=== PATIENT | female | born 1980 | race Caucasian/White ===

== ENCOUNTER 2017-10-15 20:23 | Emergency (ER) | payer BC, MEDICAID ==
[2017-10-15] MEDS ORDERED: Ketorolac INJ* 30 MG/ML 1 ML VIAL IV PUSH ONE (22:15)
[2017-10-16 00:21] VITALS: BP 112/70
--- NOTE | 2017-10-16 00:23 | ED ---
Louisa So Julia, scribed for Kathy Castañeda MD on 10/15/17 at 2217 . HPI Chest Pain - HPI Summary HPI Summary: This patient is a 37 year old F presenting to [facility] with a chief complaint of shooting upper back pain that radiates to her chest and RUE since 18:30 that has improved slightly. Patient reports indigestion and lightheadedness. The patient rates the pain 3/10 in severity. Symptoms aggravated by bending. Symptoms alleviated by nothing. Patient reports physical activity at work today. - History of Current Complaint Chief Complaint: EDChestPainROMI Time Seen by Provider: 10/15/17 21:53 Hx Obtained From: Patient Onset/Duration: Started Hours Ago Time of Onset: 18:30 Timing: Constant Initial Severity: Moderate Current Severity: Mild Pain Intensity: 3 Pain Scale Used: 0-10 Numeric Chest Pain Location: Mid Sternal Chest Pain Radiates: Yes Chest Pain Radiates To:: Back, Arm - R Character: Other: - "shooting" Aggravating Factor(s): Movement - bending over Alleviating Factor(s): Nothing Associated Signs and Symptoms: Positive: Chest Pain, Other: - indigestion and lightheadedness - Allergy/Home Medications Allergies/Adverse Reactions: Allergies Allergy/AdvReac Type Severity Reaction Status Date / Time No Known Allergies Allergy Verified 10/15/17 20:35 PMH/Surg Hx/FS Hx/Imm Hx Opthamlomology History: Denies: Hx Legally Blind EENT History: Denies: Hx Deafness Infectious Disease History: No Infectious Disease History: Denies: Traveled Outside the [place] in Last 30 Days - Family History Known Family History: Positive: Unknown - Patient is unaware of family medical history. - Social History Occupation: Employed Full-time - take out waiter/waitress Review of Systems Positive: Other - lightheaded Positive: Chest Pain Positive: Other - indigestion Musculoskeletal: Other - back and R arm pain All Other Systems Reviewed And Are Negative: Yes Physical Exam Triage Information Reviewed: Yes Vital Signs On Initial Exam: Initial Vitals Temp Pulse Resp BP Pulse Ox 98.4 F 74 20 117/87 100 10/15/17 20:32 10/15/17 20:32 10/15/17 20:32 10/15/17 20:32 10/15/17 20:32 Vital Signs Reviewed: Yes Skin: Positive: Skin Color Reflects Adequate Perfusion Head/Face: Positive: Normal Head/Face Inspection Eyes: Positive: Normal ENT: Positive: Normal ENT inspection Respiratory/Lung Sounds: Positive: Clear to Auscultation, Breath Sounds Present Cardiovascular: Positive: Normal Musculoskeletal: Positive: Other - R chest and R upper back tenderness Diagnostics - Vital Signs Vital Signs Temp Pulse Resp BP Pulse Ox 10/15/17 20:32 98.4 F 74 20 117/87 100 - Laboratory Lab Statement: Any lab studies that have been ordered have been reviewed, and results considered in the medical decision making process. - Radiology CXR Radiology Interpretation Completed By: ED Physician - No acute pathology. - EKG 20:39 Cardiac Rate: NL - at 70 BPM EKG Rhythm: Sinus Rhythm EKG Interpretation: Normal axis. Normal interval. No ischemic changes. Chest Pain Course/Dx - Course Course Of Treatment: Patient presents with shooting upper back pain that radiates to her chest and RUE since 18:30 that has improved slightly. Patient reports indigestion and lightheadedness. EKG reveals no acute concern. CXR reveals no acute concern. Lab results are unremarkable. Patient was given Toradol for symptoms. Patient is discharged with dx of chest wall pain. - Diagnoses Provider Diagnoses: Chest wall pain Discharge - Discharge Plan Condition: Stable Disposition: HOME Patient Education Materials: Chest Pain (ED) Referrals: No Primary Care Phys,NOPCP [Primary Care Provider] - Additional Instructions: RETURN TO THE EMERGENCY DEPARTMENT FOR CHANGING OR WORSENING SYMPTOMS. The documentation as recorded by the Louisa carrizales Julia accurately reflects the service I personally performed and the decisions made by me, Kathy Castañeda MD.
--- NOTE | 2017-10-16 07:30 | RAD ---
INDICATION: Chest pain COMPARISON: None TECHNIQUE: An AP portable view obtained at 2225 hours is submitted. FINDINGS: Bones/Soft Tissues: There are no acute bony findings. Cardiomediastinal: The cardiomediastinal silhouette is normal. Lungs: There are no infiltrates. Pleura: There are no pleural effusions. Other: None IMPRESSION: NORMAL CHEST.
== END 2017-10-16 00:21 | disposition home or self-care (01) ==
LOC: ED 20:23
DX: R07.89 Other chest pain (principal)
CPT/HCPCS: 36415; 71045; 82550; 93005; 96374; 99283; J1885

== ENCOUNTER → 2019-04-03 08:53 | Day surgery (SDC) | payer BC ==
[~2019-04-03 08:53] MED LIST: Buffered Lidocaine 1% SYRIN* 1 ML/SYRINGE INTRADERM ONE; Dexamethasone IV* 4 MG/ML 1 ML (4 MG) IV SLOW PU ONE; Dexamethasone IV* 4 MG/ML 1 ML (4 MG) ONE; DiMENhydriNATE IV* 50 MG/ML VIAL IV PUSH PRN; Famotidine IV* 10 MG/ML 2 ML (20 mg) IV ONE; Famotidine IV* 10 MG/ML 2 ML (20 mg) ONE; HYDROcodone/ACETAMIN 5-325 MG* 1 TAB ONE; HYDROcodone/ACETAMIN 5-325 MG* 1 TAB PO PRN; Ketorolac INJ* 30 MG/ML 1 ML VIAL IV PRN; Ketorolac INJ* 30 MG/ML 1 ML VIAL ONE; Lactated Ringers 1000 ML Bag* 1,000 ML IV SCH; Lidocaine 2% PF * 5 ML VIAL ONE; Midazolam* 1 MG/ML 5 ML VIAL (5 MG) ONE; Naloxone* 0.4 MG/ML 1 ML VIAL IV PRN; Ondansetron INJ* 2 MG/ML VIAL ONE; Phenylephrine 40 MCG/ML SYRINGE ONE; Propofol* 10 MG/ML 20 ML BTL ONE; fentaNYL* 50 MCG/ML 2 ML VIAL (100 MCG VIAL) IV PRN; fentaNYL* 50 MCG/ML 2 ML VIAL (100 MCG VIAL) ONE; oxyCODONE/Acetamin 5/325 MG* TAB PO PRN
--- NOTE | 2019-04-03 14:05 | OP ---
OPERATIVE REPORT: DATE OF OPERATION: 04/03/19 DATE OF : 78 SURGEON: Jose Antonio MD. ANESTHESIOLOGIST: Dr. Rivero. ANESTHESIA: General endotracheal anesthesia. PRE-OP DIAGNOSES: Menometrorrhagia and anemia. POST-OP DIAGNOSES: Menometrorrhagia and anemia. OPERATIVE PROCEDURE: Dilation hysteroscopy, MyoSure polypectomy, and curettage. ESTIMATED BLOOD LOSS: Minimal, less than 20 cc. SPECIMENS: Endometrial polyp and endometrial curettings. FLUID DEFICIT: 230 cc on the MyoSure. FINDINGS: Midline uterus. Uterus sounds to 10. There was fluffy endometrium throughout, small poly ps. Both tubal ostia were visualized. There was a grade 2 uterine prolapse with anesthesia. There were no adnexal masses palpated. COMPLICATIONS: None. COUNTS: Sponge count correct x2. CONDITION: The patient was brought to the recovery room, awake and in stable condition. DESCRIPTION OF PROCEDURE: The patient was brought to the operating room. When general anesthesia wa s found to be adequate, the patient was prepped and draped in the usual sterile fashion in the dorsal lithotomy position. Time-out was performed. Exam under anesthesia was performed. Speculum was marla марина in the vagina. Anterior lip of the cervix was grasped with a single-tooth tenaculum and the cerv ix was gently and easily dilated with the graduated Hegar dilators. The MyoSure was introduced, with the above findings noted. The areas that appeared polypoid were removed with the MyoSure LITE. The MyoSure was removed. Curettage was performed. Large amount of endometrial curettings was obtained and this was sent with the specimen that appeared consistent with polyp as one specimen to Pathology. The single-tooth tenaculum was removed from the cervix. Excellent hemostasis was noted. All instr uments were removed from the vagina. The patient tolerated the procedure well and was brought to rec overy room, awake and in stable condition. [id number]/[facility] #: [id number]
[2019-04-03 14:49] VITALS: BP 98/69
== END | disposition home or self-care (01) ==
LOC: OR 08:53
PROVIDERS: ATTEND Obstetrics & Gynecology
DX: N92.1 Excessive and frequent menstruation with irregular cycle (principal); N84.0 Polyp of corpus uteri; D50.0 Iron deficiency anemia secondary to blood loss (chronic); F17.210 Nicotine dependence, cigarettes, uncomplicated
CPT/HCPCS: 36415; 81025; 88305; J1100; J1885; J2250; J2405; J2704; J3010

== ENCOUNTER 2019-08-12 05:32 | Observation (INO) | payer BC ==
[~2019-08-12 05:32] MED LIST changes: -Dexamethasone IV* 4 MG/ML 1 ML (4 MG) IV SLOW PU ONE; -Dexamethasone IV* 4 MG/ML 1 ML (4 MG) ONE; -DiMENhydriNATE IV* 50 MG/ML VIAL IV PUSH PRN; -Famotidine IV* 10 MG/ML 2 ML (20 mg) IV ONE; -Famotidine IV* 10 MG/ML 2 ML (20 mg) ONE; -HYDROcodone/ACETAMIN 5-325 MG* 1 TAB ONE; -HYDROcodone/ACETAMIN 5-325 MG* 1 TAB PO PRN; -Ketorolac INJ* 30 MG/ML 1 ML VIAL IV PRN; -Ketorolac INJ* 30 MG/ML 1 ML VIAL ONE; -Lactated Ringers 1000 ML Bag* 1,000 ML IV SCH; -Lidocaine 2% PF * 5 ML VIAL ONE; -Midazolam* 1 MG/ML 5 ML VIAL (5 MG) ONE; -Naloxone* 0.4 MG/ML 1 ML VIAL IV PRN; -Ondansetron INJ* 2 MG/ML VIAL ONE; -Phenylephrine 40 MCG/ML SYRINGE ONE; -Propofol* 10 MG/ML 20 ML BTL ONE; -fentaNYL* 50 MCG/ML 2 ML VIAL (100 MCG VIAL) IV PRN; -fentaNYL* 50 MCG/ML 2 ML VIAL (100 MCG VIAL) ONE; -oxyCODONE/Acetamin 5/325 MG* TAB PO PRN
[2019-08-12] MEDS ORDERED: Lactated Ringers 1000 ML Bag* 1,000 ML IV SCH ×2 (06:00→11:00)
[2019-08-12] MEDS ORDERED: ceFOXitin 2 GM IVPREMIX* 2 GM/50 ML BAG ONE (06:12)
[2019-08-12] MEDS ORDERED: ceFOXitin 2 GM IVPREMIX* 2 GM/50 ML BAG IVPB ONE (07:00)
[2019-08-12] MEDS ORDERED: Bupivacaine 0.5% W/EPI SDV* 10 ML VIAL INJ ONE (07:11)
[2019-08-12] MEDS ORDERED: Propofol* 10 MG/ML 20 ML BTL ONE (07:23)
[2019-08-12] MEDS ORDERED: fentaNYL* 50 MCG/ML 2 ML VIAL (100 MCG VIAL) ONE ×2 (07:23→09:02)
[2019-08-12] MEDS ORDERED: Rocuronium* 10 MG/ML VIAL ONE ×2 (07:23→08:27)
[2019-08-12] MEDS ORDERED: Midazolam* 1 MG/ML 5 ML VIAL (5 MG) ONE (07:24)
[2019-08-12] MEDS ORDERED: Dexamethasone IV* 4 MG/ML 1 ML (4 MG) ONE (07:36)
[2019-08-12] MEDS ORDERED: Lidocaine 2% PF * 5 ML VIAL ONE (07:37)
[2019-08-12] MEDS ORDERED: Phenylephrine 40 MCG/ML SYRINGE ONE (07:52)
[2019-08-12] MEDS ORDERED: DiMENhydriNATE IV* 50 MG/ML VIAL IV PUSH PRN (08:46)
[2019-08-12] MEDS ORDERED: fentaNYL* 50 MCG/ML 2 ML VIAL (100 MCG VIAL) IV PRN (08:46)
[2019-08-12] MEDS ORDERED: Acetaminophen TAB* 325 MG PO PRN (08:46)
[2019-08-12] MEDS ORDERED: HYDROcodone/ACETAMIN 5-325 MG* 1 TAB PO PRN (08:46)
[2019-08-12] MEDS ORDERED: Ondansetron INJ* 2 MG/ML VIAL IV PRN (08:46)
[2019-08-12] MEDS ORDERED: Naloxone* 0.4 MG/ML 1 ML VIAL IV PRN (08:46)
[2019-08-12] MEDS ORDERED: Ketorolac INJ* 30 MG/ML 1 ML VIAL ONE (09:09)
[2019-08-12] MEDS ORDERED: Ondansetron INJ* 2 MG/ML VIAL ONE (09:09)
[2019-08-12] MEDS ORDERED: oxyCODONE/Acetamin 5/325 MG* TAB PO PRN (10:27)
[2019-08-12] MEDS ORDERED: HYDROmorphone INJ1* 1 MG/ML SYRINGE ONE ×2 (11:05→14:28)
[2019-08-12] MEDS: HYDROmorphone INJ1* 1 MG/ML SYRINGE IV PRN ×6 (11:06→22:13)
[2019-08-12] MEDS ORDERED: Acetaminophen TAB* 325 MG ONE (14:28)
[2019-08-12 17:39] LABS: Urine Appearance Clear; Urine Bilirubin Negative (Negative); Urine Blood Negative (Negative); Urine Color Straw; Urine Glucose Negative (Negative); Urine Ketones Negative (Negative); Urine Nitrite Negative (Negative); Urine Protein Negative (Negative); Urine Specific Gravity 1.003 (1.010-1.030); Urine Urobilinogen Negative (Negative)
[2019-08-12] MEDS: Ibuprofen TAB* 600 MG PO PRN (19:18)
[2019-08-12] MEDS: Ondansetron TAB* 4 MG PO PRN (22:04)
[2019-08-12] MEDS: Acetaminophen TAB* 325 MG PO PRN (22:04)
[2019-08-13] MEDS: Acetaminophen TAB* 325 MG PO PRN ×3 (04:16→17:45)
[2019-08-13] MEDS: HYDROmorphone INJ1* 1 MG/ML SYRINGE IV PRN (06:23)
[2019-08-13] MEDS ORDERED: Simethicone TAB* 80 MG TAB.CHEW PO PRN (08:55)
--- NOTE | 2019-08-13 09:10 | SURGPN ---
Subjective - Introduction -: Patient is a 39 y/o with Abnormal uterine bleeding post surgical treatment. Admitted on: 08/12/19] Patient's surgical date: 08/12/19 Procedure completed: Laparoscopic supracervical hysterectomy and bilateral salpingectomy. S.Post op day 1. patientis in bed with walker next to her bed, denies chest pain, shortness of breath, nausea and vomiting. She admits to abdominal discomfoit due to abdominal "gas" bloating she ebenezer that overnight she used the walker to reach bathroom due to being sleepy and lightheaded. She declined percocet and states that Motrin and tylenol is sufficient for pain, she , however, has been treated with dilaudid since admission. The patient is crying stating is due to lack of sleep which she feels is due to Nicotine withdrawal as she admits to smoking >1/2 pk day. Vital Signs Temp Pulse Resp BP Pulse Ox 98.0 F 76 16 93/58 97 08/13/19 08:39 08/13/19 08:39 08/13/19 08:39 08/13/19 08:39 08/13/19 08:39 Intake & Output 08/11/19 08/12/19 08/13/19 08/14/19 06:59 06:59 06:59 06:59 Intake Total 3115 Output Total 3760 400 Balance -645 -400 Weight 163 lb Intake: IV Fluids 2445 LR 2445 Oral 670 Output: Urine 0 Wisdom 2850 400 Residual 910 Wisdom 16 Fr 910 Other: # Bowel Movements 0 ADLs: Meal Record Start: 08/12/19 12: 23 Freq: Status: Active Protocol: Created 08/12/19 12:23 System (Rec: 08/12/19 12:23 System [id number]) Intake and Output Start: 08/12/19 12: 23 Freq: DAILY@0600,1400,2200 Status: Active Protocol: Created 08/12/19 12:23 System (Rec: 08/12/19 12:23 System [id number]) Document 08/12/19 14:32 [id number] (Rec: 08/12/19 14:32 [id number] [facility]-M18) Document 08/12/19 22:25 [id number] (Rec: 08/12/19 22:26 [id number] [facility]-M17) Document 08/13/19 05:16 [id number] (Rec: 08/13/19 05:17 [id number] [facility]-C08) Document 08/13/19 06:00 [id number] (Rec: 08/13/19 06:01 [id number] [facility]-4) Laboratory Last Values Urine Color Straw 08/12/19 17:15 Urine Appearance Clear 08/12/19 17:15 Urine pH 7.0 (5-9) 08/12/19 17:15 Ur Specific [place] 1.003 (1.010-1.030) L 08/12/19 17:15 Urine Protein Negative (Negative) 08/12/19 17:15 Urine Ketones Negative (Negative) 08/12/19 17:15 Urine Blood Negative (Negative) 08/12/19 17:15 Urine Nitrate Negative (Negative) 08/12/19 17:15 Urine Bilirubin Negative (Negative) 08/12/19 17:15 Urine Urobilinogen Negative (Negative) 08/12/19 17:15 Ur Leukocyte Esterase Negative (Negative) 08/12/19 17:15 Urine Glucose Negative (Negative) 08/12/19 17:15 PE Lungs CTA b/l, no CVA tenderness b/l CV RRR no abnormal heart sounds Abdomen is soft, distended with normal bowel sounds, normal post op tenderness. Incisions clean , dry and intact with no discharge noted. - Medications -: Active Medications Generic Name Dose Route Start Last Admin Trade Name Freq PRN Reason Stop Dose Admin Acetaminophen 650 mg 08/12/19 14:30 08/13/19 04:16 Tylenol Tab* PO 650 mg Q6H PRN Administration PAIN MILD Bisacodyl 10 mg 08/13/19 08:53 Dulcolax Supp* HI 08/13/19 08:54 ONCE ONE Docusate Sodium 100 mg 08/13/19 08:55 Colace Cap* PO BID PRN CONSTIPATION Lactated Ringer's 1,000 mls @ 125 mls/hr 08/12/19 11:00 08/12/19 12:30 Lactated Ringers 1000 Ml Bag* IV 125 mls/hr PER RATE LEI Administration Ibuprofen 600 mg 08/12/19 10:27 08/12/19 19:18 Motrin Tab* PO 600 mg Q6H PRN Administration PAIN - MILD Nicotine 1 patch 08/13/19 09:00 Nicotine Patch 21 Mg/24 Hr* TRANSDERM DAILY LEI Ondansetron HCl 4 mg 08/12/19 20:28 08/12/19 22:04 Zofran Tab* PO 4 mg Q4H PRN Administration NAUSEA Pharmacy Profile Note 1 note 08/14/19 06:00 Nicotine Patch Removal Note* FOLLOW UP 0600 [facility] Simethicone 80 mg 08/13/19 08:55 Mylicon Tab* PO Q6H PRN NAUSEA - Comments Comments: Plan. OOB and ambulate Discontinue Dilaudid Heplock IV added meds, Nicotine patch, colace, dulcolax supp, mylicon. Patient has Anxiety issues is not on medication treatment for this, we discussed the plan to get her OOB and moving, along with medication changes. Overall she is stable,however, her anxiety may preclude her from achieving her goals for recovery today. Will continue top monitor and reasses her progress this afternoon Objective - Intake and Output -: Intake & Output 08/11/19 08/12/19 08/13/19 08/14/19 06:59 06:59 06:59 06:59 Intake Total 3115 Output Total 3760 400 Balance -645 -400 Weight 163 lb Intake: IV Fluids 2445 LR 2445 Oral 670 Output: Urine 0 Wisdom 2850 400 Residual 910 Wisdom 16 Fr 910 Other: # Bowel Movements 0 ADLs: Meal Record Start: 08/12/19 12: 23 Freq: Status: Active Protocol: Created 08/12/19 12:23 System (Rec: 08/12/19 12:23 System [id number]) Intake and Output Start: 08/12/19 12: 23 Freq: DAILY@0600,1400,2200 Status: Active Protocol: Created 08/12/19 12:23 System (Rec: 08/12/19 12:23 System [id number]) Document 08/12/19 14:32 [id number] (Rec: 08/12/19 14:32 [id number] S[facility]-M18) Document 08/12/19 22:25 [id number] (Rec: 08/12/19 22:26 [id number] SSU-M17) Document 08/13/19 05:16 [id number] (Rec: 08/13/19 05:17 [id number] S[facility]-C08) Document 08/13/19 06:00 [id number] (Rec: 08/13/19 06:01 [id number] [place] [address])
[2019-08-13 09:18] LABS: ABS Lymphocytes 1.7 10^3/ul (1.0-4.8); ABS Monocytes 0.6 10^3/ul (0-0.8); ABS Neutrophils 5.7 10^3/ul (1.5-7.7); Eosinophil % 0.2 %; Hematocrit 31 % (35-47); Hemoglobin 10.7 g/dL (12.0-16.0); Lymphocyte % 21.3 %; Mean Corpuscular HGB Conc 34 g/dL (31-36); Mean Corpuscular Hemoglobin 33 pg (27-31); Mean Corpuscular Volume 96 fL (80-97); Mean Platelet Volume 7.9 fL (7.4-10.4); Platelet Count 248 10^3/uL (150-450); Red Blood Count 3.23 10^6 /uL (3.70-4.87); Red Cell Distribution Width 14 % (10-15); White Blood Count 8.1 10^3/uL (3.5-10.8)
[2019-08-13] MEDS: Nicotine PATCH 21 MG/24 HR* PATCH TRANSDERM SCH (09:41)
[2019-08-13] MEDS: Docusate CAP* 100 MG PO PRN (09:42)
[2019-08-13] MEDS: Ibuprofen TAB* 600 MG PO PRN (10:42)
[2019-08-13] MEDS ORDERED: Ketorolac INJ* 30 MG/ML 1 ML VIAL IV PRN (17:34)
[2019-08-14] MEDS ORDERED: HYDROcodone/ACETAMIN 5-325 MG* 1 TAB ONE (08:50)
[2019-08-14] MEDS: Ondansetron TAB* 4 MG PO PRN ×2 (08:55→13:08)
[2019-08-14] MEDS: Nicotine PATCH 21 MG/24 HR* PATCH TRANSDERM SCH (08:56)
[2019-08-14 11:38] VITALS: BP 101/67
--- NOTE | 2019-08-14 12:39 | SURGPN ---
Subjective - Introduction -: Admitted on: [08/12/19 Patient's surgical date: 08/12/19 Procedure completed: laparoscopic supracervical hysterectomy S. Patient feels much better pain controlled with current meds, tolerating reg diet, passing flatus, denies chest pain/ shortness of breath/nausea or vomiting. Undergoing bladder training post urinary retention. O. Vital Signs Temp Pulse Resp BP Pulse Ox 97.7 F 85 16 101/67 99 08/14/19 11:33 08/14/19 11:33 08/14/19 11:33 08/14/19 11:33 08/14/19 11:33 Intake & Output 08/12/19 08/13/19 08/14/19 08/15/19 06:59 06:59 06:59 06:59 Intake Total 3115 1850 Output Total 3760 4525 1100 Balance -645 -2675 -1100 Weight 163 lb Intake: IV Fluids 2445 LR 2445 Oral 670 1850 Output: Urine 0 0 Ruth 2850 4025 1100 Residual 910 500 Ruth 16 Fr 910 500 Other: # Bowel Movements 0 1 Estimated Stool Amount Small Physical Lungs CTA b/l CV RRR Abdomen soft, mild distension with normal active bowel sounds. Incisions clean/dry/intact, no discharge. - Medications -: Active Medications Generic Name Dose Route Start Last Admin Trade Name Freq PRN Reason Stop Dose Admin Acetaminophen 650 mg 08/12/19 14:30 08/13/19 17:45 Tylenol Tab* PO 650 mg Q6H PRN Administration PAIN MILD Hydrocodone Bitart/Acetaminophen 1 tab 08/14/19 08:58 [place] 5-325 Tab* PO Q4H PRN PAIN - SEVERE Docusate Sodium 100 mg 08/13/19 08:55 08/13/19 09:42 Colace Cap* PO 100 mg BID PRN Administration CONSTIPATION Lactated Ringer's 1,000 mls @ 125 mls/hr 08/12/19 11:00 08/12/19 12:30 Lactated Ringers 1000 Ml Bag* IV 125 mls/hr PER RATE LEI Administration Ketorolac Tromethamine 30 mg 08/13/19 17:34 08/13/19 17:45 Toradol Inj* IV 30 mg Q6H PRN Administration PAIN - MODERATE Nicotine 1 patch 08/13/19 09:00 08/14/19 08:56 Nicotine Patch 21 Mg/24 Hr* TRANSDERM 1 patch DAILY LEI Administration Ondansetron HCl 4 mg 08/12/19 20:28 08/14/19 08:55 Zofran Tab* PO 4 mg Q4H PRN Administration NAUSEA Pharmacy Profile Note 1 note 08/14/19 21:00 Nicotine Patch Removal Note* PATCH OFF 2100 LEI Simethicone 80 mg 08/13/19 08:55 08/13/19 17:45 Mylicon Tab* PO 80 mg Q6H PRN Administration NAUSEA - Comments Comments: I/P POD # 2 post op course complicated by urinary retention requiring catheterizatin and bladder training otherwise stable. Plan. D/C ruth at 1 pm trial at spontaneous voiding. Objective - Intake and Output -: Intake & Output 08/12/19 08/13/19 08/14/19 08/15/19 06:59 06:59 06:59 06:59 Intake Total 3115 1850 Output Total 3760 4525 1100 Balance -645 -9497 -1100 Weight 163 lb Intake: IV Fluids 2445 LR 2445 Oral 670 1850 Output: Urine 0 0 Ruth 2850 4025 1100 Residual 910 500 Ruth 16 Fr 910 500 Other: # Bowel Movements 0 1 Estimated Stool Amount Small ADLs: Meal Record Start: 08/12/19 12: 23 Freq: Status: Active Protocol: Created 08/12/19 12:23 System (Rec: 08/12/19 12:23 System [facility]) Intake and Output Start: 08/12/19 12: 23 Freq: DAILY@0600,1400,2200 Status: Active Protocol: Created 08/12/19 12:23 System (Rec: 08/12/19 12:23 System [facility]) Document 08/12/19 14:32 [id number] (Rec: 08/12/19 14:32 [id number] [facility] Document 08/12/19 22:25 [id number] (Rec: 08/12/19 22:26 [id number] [facility] Document 08/13/19 05:16 [id number] (Rec: 08/13/19 05:17 [id number] [facility]-C08) Document 08/13/19 06:00 [id number] (Rec: 08/13/19 06:01 [id number] TELE-M14) Document 08/13/19 13:46 [id number] (Rec: 08/13/19 13:47 [id number] [facility] Document 08/13/19 15:07 [id number] (Rec: 08/13/19 15:08 [id number] [facility]) Document 08/13/19 16:00 [id number] (Rec: 08/13/19 16:27 [id number] [facility]) Document 08/13/19 17:24 [id number] (Rec: 08/13/19 17:24 [id number] [facility]6) Document 08/13/19 22:41 [id number] (Rec: 08/13/19 22:53 [id number] [facility]) Document 08/14/19 06:10 [id number] (Rec: 08/14/19 06:16 [id number] [facility]2)
[2019-08-14] MEDS: HYDROcodone/ACETAMIN 5-325 MG* 1 TAB PO PRN ×2 (13:09→17:18)
[2019-08-14] MEDS: Docusate CAP* 100 MG PO PRN (13:18)
--- NOTE | 2019-08-14 18:10 | PN ---
Progress Note - Progress Note Date of Service: 08/14/19 SOAP: Subjective: [Patient is comfortable, ambulating, voiding spontaneously with no difficulty, tolerating reg diet and pain well controlled with PO meds. She desires discharge home tonite.] Objective: [ Vital Signs Temp Pulse Resp BP Pulse Ox 97.3 F 72 16 101/67 100 08/14/19 16:30 08/14/19 16:30 08/14/19 17:18 08/14/19 16:30 08/14/19 16:30 Lungs Cta b/l CV RRR Abdomen Soft, Normal bowel sounds, Appropriately tender. Incisions are C/D/I no discharge.] Assessment: [Patient stable for discharge.] Plan: [Discharge home, D/C instructions reviewed with patient.]
[2019-08-14] MEDS ORDERED: Nicotine Patch Removal NOTE PATCH OFF SCH (21:00)
--- NOTE | 2019-09-03 09:16 | DS ---
DISCHARGE SUMMARY: DATE OF ADMISSION: 08/12/19 DATE OF DISCHARGE: 08/14/19, postop day #2. HOSPITAL COURSE: The patient was admitted with abnormal uterine bleeding. She underwent a laparosco pic supracervical hysterectomy on the day of admission without any complications. Postoperatively, t he patient was then transferred to the surgical stay unit for observation. [facility] was complicated by urinary retention, for which she underwent bladder training and then on postop day #2, 08/14/19, the patient was ambulating and voiding without difficulty, tolerating regular diet, and was using p.o. meds. So, at this point, the patient met criteria for discharge and she was ther efore discharged home to follow up at my office in 1 week post procedure. Discharge instructions wer e reviewed with the patient as well as take home medications. Please refer to the patient's chart fo r complete details of the patient's laboratory findings and operative findings and pathology report, which at the date and the time of discharge was pending. [id number]/[facility] #: [id number]
--- NOTE | 2019-09-03 10:14 | OP ---
OPERATIVE REPORT: DATE OF OPERATION: 08/12/19 DATE OF : 78 SURGEON: Willard Holder MD. CARGO SUPERVISOR SURGEON: Jose Antonio MD. ANESTHESIA: General anesthetic with endotracheal intubation. PRE-OP DIAGNOSIS: Abnormal uterine bleeding. POST-OP DIAGNOSIS: Abnormal uterine bleeding. OPERATIVE PROCEDURE: Laparoscopic supracervical hysterectomy and bilateral salpingectomy. ESTIMATED BLOOD LOSS: 10 cc. SPECIMEN SENT TO PATHOLOGY: Right and left fallopian tubes and a morcellated uterus. FLUIDS: She received 2 L of IV crystalloid fluid. URINE OUTPUT: 600 cc of clear urine. FINDINGS: The patient was noted to have an enlarged globular uterus with no obvious lesion. Normal tubes and ovaries bilaterally with normal bowel and bladder. COMPLICATIONS: There were no complications. DESCRIPTION OF PROCEDURE: The patient was taken to the operating room where she was identified. She was placed on the operating table, where a general anesthetic with endotracheal intubation was obtai nataliia without difficulty. She was then placed in the dorsal lithotomy position, prepped and draped in normal sterile fashion. Attention was then brought on to the patient's peritoneum where the bladder w as catheterized with a Wisdom catheter and drained of clear urine. A speculum was inserted into the p atient's vagina. The cervix was identified. It was then grasped with a single-tooth tenaculum and t hrough the cervix, a [place] uterine manipulator was introduced. The balloon in the manipulator wa s insufflated with 3 cc of normal saline. The single-tooth tenaculum was removed as well as the spec ulum. Attention was then brought on to the patient's abdomen where an infraumbilical skin incision w as made with a knife and carried through to the underlying layer of fascia. The fascia was then gras ped with Seema clamps and brought up to the incision. The fascia was then incised midline with a kn renetta. Entry into the patient's abdomen and through the peritoneum was confirmed using a Nguyen clamp. The Seema clamps in the fascia were then replaced with 0 Polysorb sutures. The fascial incision on the umbilicus was then extended inferiorly and superiorly sharply to about a length of 4 cm. Through this incision, a GelPOINT single-site port was introduced. A trocar in the port was also placed. T he patient's abdomen was then insufflated with CO2 gas. Through the GelPort, a 30- degree scope was introduced. The patient was then placed in the Trendelenburg position and 2 other trocars in the rig ht and left upper quadrants of the patient's abdomen were introduced under direct visualization. We then proceeded to move the bowel away from the patient's pelvis and a survey of the patient's pelvic anatomy revealed findings as noted above. At this point, we then proceeded to do a bilateral salping ectomy using the LigaSure by grasping the wound and fallopian tubes bilaterally at its most distal po rtion, the fimbriated end. They were then resected and removed from the patient's abdomen and sent to Pathology. We identified the round ligaments and the uterus bilaterally. These were graspe d with LigaSure, coagulated and transected. The uteroovarian ligaments were grasped with LigaSure bi laterally. They were coagulated and transected as well as the proximal portion of the fallopian tube was grasped with LigaSure, coagulated and transected. A window in the anterior leaf of the broad lig ament was then made with the LigaSure. The anterior leaf of the broad ligament was then opened infer iorly using sharp and blunt dissection. The bladder flap was created. The bladder was then mobilize d away from the lower uterine segment using sharp and blunt dissection with the LigaSure device. We identified the uterine arteries bilaterally. They were grasped at the lateral aspect of the uterus w ith the LigaSure. They were coagulated. The uterine artery was then coagulated in succession toward s the lower uterine segment and the cervix. They were then transected bilaterally using LigaSure at the uterine cervical junction. The uterus was then noted to be pale from its diminished blood supply . We then introduced a SupraLoop towards the trocars in the patient's abdomen. The SupraLoop was th en wrapped around the uterus and its cervical uterine junction. It was charged at 110 Pure-Cut setti ng and the uterus had been decapitated from the cervix. The SupraLoop was then removed from the tiana ent's abdomen. Prior to decapitating the uterus with the SupraLoop, I had removed the uterine manipu lator. So at this point, we proceeded to remove the uterus away from the pelvis. At the site of the surgery, the pedicles were noted to be completely hemostatic as well as the cervix. We then placed the uterus in an Endobag. The bag was removed through the patient's umbilicus. The uterus was morce llated inside the bag. It was then removed and sent to Pathology. The bag was also removed. We the n reapplied the GelPOINT port. The patient's abdomen was then insufflated again with CO2 gas. We to ok a survey of the patient's operative site. The pedicles were noted to be completely hemostatic. A t this point, I proceeded to irrigate with normal saline. Irrigation fluid was suctioned. No bleedi ng was noted. The trocars in the right and left upper quadrants of the patient's abdomen were then r emoved under direct visualization and the single-site GelPOINT trocar was removed as well. The fasci a in the umbilicus was closed using 0 Polysorb suture in a running fashion and all the operative skin incisions were then closed with 4-0 Monocryl subcuticular stitches. The patient tolerated the proce dure well. Sponge, lap, and needle counts were correct x2. She was then transferred to the recovery room area in stable condition. [id number]/[facility] #: [id number]
--- NOTE | 2019-10-01 08:26 | DS ---
DISCHARGE SUMMARY: ADDENDUM: DISPOSITION ON DISCHARGE: She was stable and was discharged to home. [id number]/[facility] #: [id number] KASEY
== END 2019-08-14 19:10 | disposition home or self-care (01) ==
LOC: OR 05:32 → SSU 10:27
PROVIDERS: ADMIT Obstetrics & Gynecology; ATTEND Obstetrics & Gynecology
DX: N92.1 Excessive and frequent menstruation with irregular cycle (principal); D50.0 Iron deficiency anemia secondary to blood loss (chronic)
CPT/HCPCS: 36415; 81003; 85025; 88307; 96374; 96375; 96376; A9270-GY; G0378; J0694; J1100; J1170; J1885; J2250; J2405; J2704; J3010

== ENCOUNTER 2019-12-27 14:30 | Emergency (ER) | payer BC ==
--- OUTSIDE RECORDS SUMMARY | 2019-12-27 15:37 | XMS REPORT | Summary of Care ---
:1980 Author Organization [facility] Address [address] [place] [address] Care Team Providers Name Role Phone Brooke Pat Primary Care Provider Reason for Visit Reason Comments Check Up vertigo and dizziness started yesterday Encounter Details Date Type Department Care Team Description 12/24/2019 Office Visit [facility] Concha Pat (Primary Dx); Practice MD Brooke Nasal congestion [address] [place], [place] [id number] [place] [address] [phone] Allergies Active Allergy Reactions Severity Noted Date Comments Megestrol Respiratory Reaction 04/01/2018 Patient stated that she felt she was unable to breath. Resolved when medication stopped. documented as of this encounter (statuses as of 12/24/2019) Medications Medication Sig Dispensed Refills Start Date End Date Status B Complex Vitamins Take by mouth 0 Active (VITAMIN-B COMPLEX DAILY. PO) Iron 15 MG/1.5ML Take 6 mL by 1 Bottle 1 05/07/2018 Active Oral Suspension mouth THREE TIMES PER WEEK. fluticasone [place] 2 Sprays 1 Bottle 0 12/24/2019 Active (FLONASE) 50 in nose DAILY. MCG/ACT Nasal SuspensionIndicatio ns: Nasal congestion meclizine Take 1 Tab by 60 Tab 1 12/24/2019 Active (ANTIVERT) 25 MG mouth THREE Oral TIMES DAILY TabIndications: NEEDED for Dizziness dizziness/vert igo. hydrocortisone Place 1 Appl 30 g 3 05/13/2018 12/24/19 Discontinued (No (ANUSOL-HC,PROCTOSO per rectum 20 longer L-HC) 2.5 % Rectal THREE TIMES clinically Cream DAILY. indicated) Nitroglycerin 0.4 % Place 1 Appl 30 g 2 05/20/2018 12/24/19 Discontinued (No Rectal per rectum 20 longer OintmentIndications TWICE DAILY. clinically : Anal or rectal indicated) pain PROCEDURE 1 Each by 30 Each 3 05/21/2018 12/24/19 Discontinued (No (MEDICATION Topical route 20 longer COMMUNICATION THREE TIMES clinically ORDER)Indications: DAILY. indicated) Grade IV Diltiazem 4% hemorrhoids, Anal applied small or rectal pain amounts to perineum 3 times daily Milk Thistle 150 MG Take by 0 12/24/19 Discontinued (No Oral Cap mouth. 20 longer clinically indicated) mupirocin Apply to thumb 30 g 0 07/09/2018 12/24/19 Discontinued (No (BACTROBAN) 2 % 3 times a day 20 longer Apply externally for 1 week clinically Ointment indicated) documented as of this encounter (statuses as of 12/24/2019) Active Problems Problem Noted Date Grade IV hemorrhoids 05/21/2018 Anal or rectal pain 05/21/2018 Chest pain of uncertain etiology 03/10/2018 Weight gain 03/10/2018 Anemia 03/10/2018 Multiple atypical nevi 03/10/2018 Abnormal uterine bleeding 03/10/2018 documented as of this encounter (statuses as of 12/24/2019) Resolved Problems Problem Noted Date Resolved Date Menorrhagia with irregular cycle 03/10/2018 03/10/2018 documented as of this encounter (statuses as of 12/24/2019) Social History Tobacco Use Types Packs/Day Years Used Date Current Every Day Smoker Cigarettes 0.5 12 Smokeless Tobacco: Never Used Alcohol Use Drinks/Week oz/Week Comments Yes Sex Assigned at Date Recorded Not on file documented as of this encounter Last Filed Vital Signs Not on filedocumented in this encounter Progress Notes Brooke Pat MD - 12/24/2019 1:40 PM EDT PATIENT: Renée Ahn : 1980 DATE OF SERVICE: 12/24/2019 In our efforts to minimize the spread of COVID-19 in our community, amongst our patients, healthcarestaff and providers, we have implemented virtual visits with our patients. No vital signs, physical exam or in-office diagnostics were completed during this visit. These items may be accomplished during subsequent visits. Subjective SUBJECTIVE: Patient was Not able to start video on her devise during the session Renée Ahn is a 39-y.o. female who presents for evaluation of vertigo started acutely yesterday after turning in her bed/ turning her head to the R. Associated ear symptoms: none. Associated central nervous system symptoms: headaches. Recent infections: Nasal congestion, clearnasal discharge, postnasal drip, productive cough started about 2 weeks ago. She is a smoker Denies fever, SOB Past Medical History: Diagnosis Date ? Anemia ? Hemorrhoid Family History Problem Relation Age of Onset ? No Known Problems Mother ? No Known Problems Father ? Alcohol/Drug Sister ? GI Son UC ? Diabetes Maternal Grandmother ? Stroke Maternal Grandfather ? Cancer Maternal Aunt reproductive tract Current Outpatient Medications Medication Sig ? B Complex Vitamins (VITAMIN-B COMPLEX PO) Take by mouth DAILY. ? fluticasone (FLONASE) 50 MCG/ACT Nasal Suspension [place] 2 Sprays in nose DAILY. ? Iron 15 MG/1.5ML Oral Suspension Take 6 mL by mouth THREE TIMES PER WEEK. ? meclizine (ANTIVERT) 25 MG Oral Tab Take 1 Tab by mouth THREE TIMES DAILY NEEDED for dizziness/vertigo. No current facility-administered medications for this visit. Allergies Allergen Reactions ? Megestrol Respiratory Reaction Patient stated that she felt she was unable to breath. Resolved when medication stopped. Social History Socioeconomic History ? Marital status: Single Spouse name: Not on file ? Number of children: Not on file ? Years of education: Not on file ? Highest education level: Not on file Occupational History ? Not on file Social Needs ? Financial resource strain: Not on file ? Food insecurity Worry: Not on file Inability: Not on file ? Transportation needs Medical: Not on file Non-medical: Not on file Tobacco Use ? Smoking status: Current Every Day Smoker Packs/day: 0.50 Years: 12.00 Pack years: 6.00 Types: Cigarettes ? Smokeless tobacco: Never Used Substance and Sexual Activity ? Alcohol use: Yes ? Drug use: No ? Sexual activity: Yes Partners: Male Lifestyle ? Physical activity Days per week: Not on file Minutes per session: Not on file ? Stress: Not on file Relationships ? Social connections Talks on phone: Not on file Gets together: Not on file Attends jain service: Not on file Active member of club or organization: Not on file Attends meetings of clubs or organizations: Not on file Relationship status: Not on file ? Intimate partner violence Fear of current or ex partner: Not on file Emotionally abused: Not on file Physically abused: Not on file Forced sexual activity: Not on file Other Topics Concern ? Back Care Not Asked ? Bike Helmet Not Asked ? Blood Transfusions Not Asked ? Caffeine Concern Not Asked ? Exercise Not Asked ? Hobby Hazards Not Asked ? International Travel No ? Service Not Asked ? Occupational Exposure Not Asked ? Seat Belt Yes ? Self-Exams No ? Sleep Concern Not Asked ? Special Diet Not Asked ? Stress Concern Not Asked ? Weight Concern Not Asked Social History Narrative ? Not on file REVIEW OF SYSTEMS: All remaining review of systems was negative. Objective OBJECTIVE: There were no vitals taken for this visit. Patient counseled about peripheral vertigo Recent respiratory infection vs Allergy possibly contributes Advised to start Flonase nasal spray once a day every day and Meclizine as needed for vertigo. Advised - Meclizine can be sedating, can cause dry mouth and constipation. OK to try half a tablet if 25 mg is to strong for her. ICD-9-CM ICD-10-CM 1. Dizziness 780.4 R42 meclizine (ANTIVERT) 25 MG Oral Tab 2. Nasal congestion 478.19 R09.81 fluticasone (FLONASE) 50 MCG/ACT Nasal Suspension Patient advised to be evaluated at the office if the symptoms persist or worse Author: Brooke Pat MD 12/24/2019 14:37 documented in this encounter Plan of Treatment Health Maintenance Due Date Last Done Comments PNEUMOCOCCAL 0-64 YRS (1 of 1985 1 - PPSV23) DTaP/Tdap/Td Vaccines (1 - 1990 Tdap) DEPRESSION SCREENING 1991 HIV SCREENING 1994 LIPID DISORDER SCREENING 1997 PAP SMEAR 02/17/2000 MAMMOGRAM (SCREENING) 2019 DIABETES SCREENING 03/14/2019 03/14/2018, 02/21/2018, 10/17/2017, Additional history exists INFLUENZA VACCINE (Season 05/24/2020 Ended) HEPATITIS A IMMUNIZATION Aged Out No longer eligible SERIES based on patient's age to complete this topic HPV IMMUNIZATION SERIES Aged Out No longer eligible based on patient's age to complete this topic MENINGOCOCCAL VACCINE IMM Aged Out No longer eligible based on patient's age to complete this topic documented as of this encounter Results Not on filedocumented in this encounter Visit Diagnoses Diagnosis Dizziness Dizziness and giddiness Nasal congestion Other diseases of nasal cavity and sinuses documented in this encounter Insurance Payer Benefit Plan / Subscriber ID Effective Dates Phone Address Type Group [employer] M[employer] [id number] 2019-Present [employer]AN documented as of this encounter Advance Directives Type Date Recorded Patient Software Team Leader Explanation Advance Directives 05/22/2018 8:36 AM Health Care Proxy
[2019-12-27 15:59] VITALS: BP 126/84
[2019-12-27] MEDS ORDERED: Amoxicillin/Clavulanate TAB* 875 MG PO ONE (16:26)
[2019-12-27] MEDS ORDERED: Meclizine TAB* 12.5 MG PO ONE (16:29)
--- NOTE | 2019-12-27 16:33 | UC ---
Dizzy HPI HPI Summary: 39-year-old woman comes in with a chief complaint of dizziness. 4 days ago patient woke up rolled over on her side and started with a spinning dizziness. Dizziness is worse with movement of her head or if she is leaning left or leaning backward. She can make the dizziness go away if she lays on her left side or leans to the left. Denies any weakness or numbness or difficulty with vision or speech. After approximately a half a day after the vertigo symptoms started patient started developing a headache in the right temporal area and behind the right eye that developed gradually. Denies any eye or ear pain. No rash. Headache intensity is variable from a 2 out of 10 to a 6 out of 10. Patient has woke up in the morning with no vertigo symptoms but when she moves her head the vertigo returns. Generally, during the course of the day the vertigo improves. Patient reports that last evening she was able to take shower and had minimal symptoms. Today when she woke up in the vertigo started again she went to get reevaluated. She spoke with her primary care physician by telemedicine 2 days ago and they started her on Flonase and Dramamine. She reports she's had no improvement on those medications. Patient did have some shortness of breath and chest tightness roughly 2 weeks ago after working out. Patient reports she did not work out in months prior to working out. She reports that the chest tightness was worse when she pushes on her chest wall. No complaint of any shortness of breath or chest congestion or fevers at this time. - History Of Current Complaint Chief Complaint: Martinez Stated Complaint: DIZZINESS,NAUSEA Time Seen by Provider: 12/27/19 15:34 Pain Intensity: 0 - Allergies/Home Medications Allergies/Adverse Reactions: Allergies Allergy/AdvReac Type Severity Reaction Status Date / Time megestrol [From Megace] Allergy Shortness Verified 12/27/19 15:53 of Breath oxycodone [From Percocet] Allergy Nausea And Verified 12/27/19 15:53 Vomiting Home Medications: Home Medications Ferrous Sulfate DROPS* 3 drop PO QAM 03/27/19 [History Confirmed 12/27/19] Vitamin B Complex 1 drop PO QAM 03/27/19 [History Confirmed 12/27/19] Amoxicillin/Clavulanate TAB* [Augmentin TAB 875*] 875 mg PO BID #18 tab [Rx] DiMENhydriNATE TAB* [DraMAMine TAB*] 50 mg PO Q6H PRN 12/27/19 [History Confirmed 12/27/19] Fluticasone NASAL SPRAY 50MCG* [Flonase NASAL SPRAY 50MCG*] 2 spray BOTH NARES DAILY 12/27/19 [History Confirmed 12/27/19] Meclizine HCl [Motion Sickness Relief] 25 mg PO Q6HR PRN #20 tablet 12/27/19 [Rx ] PMH/Surg Hx/FS Hx/Imm Hx Previously Healthy: Yes - Surgical History Surgical History: Yes Surgery Procedure, Year, and Place: KIDNEY SURGERY 1982 URETHRAL RESECTION BILAT. D&C 03/11 [facility] [place]. X1 2003. hysterectomy 2019 - Family History Known Family History: Positive: Unknown - Patient is unaware of family medical history. - Social History Alcohol Use: Daily Alcohol Amount: 1-2 glasses WINE X 1 DAILY Substance Use Type: None Smoking Status (MU): Heavy Every Day Tobacco Smoker Amount Used/How Often: 1/2 PPK X 22YR Have You Smoked in the Last Year: Yes Review of Systems All Other Systems Reviewed And Are Negative: Yes Constitutional: Positive: Other - see hpi Skin: Positive: Negative Eyes: Positive: Negative ENT: Positive: Other - see hpi Respiratory: Positive: Other - see hpi Cardiovascular: Positive: Other - see hpi Gastrointestinal: Positive: Negative Motor: Positive: Negative Neurovascular: Positive: Negative Musculoskeletal: Positive: Negative Neurological/Mental Status: Positive: Headache, Other - see hpi Psychological: Positive: Negative Is Patient Immunocompromised?: No Physical Exam Triage Information Reviewed: Yes Appearance: Well-Appearing - Patient prefers to lean to the left, No Pain Distress, Well-Nourished Vital Signs: Initial Vital Signs Temp 98.5 F 12/27/19 15:55 Pulse 86 12/27/19 15:55 Resp 16 12/27/19 15:55 BP 126/84 12/27/19 15:55 Pulse Ox 100 12/27/19 15:55 Vital Signs Reviewed: Yes Eye Exam: Normal Eyes: Positive: Conjunctiva Clear, Other: - Minimal right beating nystagmus. No nystagmus at rest. No visual field deficit. PERRLA EOMI. No photophobia. ENT: Positive: Normal ENT inspection, Pharynx normal, TMs normal, Other - No rash on the face or the side of the head. Neck: Positive: Supple Respiratory: Positive: Lungs clear, Normal breath sounds, No respiratory distress Cardiovascular: Positive: RRR Musculoskeletal: Positive: Strength Intact, ROM Intact Neurological: Positive: Alert, Other: - Minimal right beating nystagmus. No nystagmus at rest. No focal visual field deficit. Arms and legs have full range of motion and full strength. No facial droop. Finger to nose and heel to verma are normal bilaterally. Psychological: Positive: Age Appropriate Behavior Skin Exam: Normal Dizzy Course/Dx - Course Course Of Treatment: The patient has vertigo. Her spinning dizziness is worse with head movement. She can make the dizziness go away by lying on her left side or leaning her head to the left. She has no nystagmus at rest. Finger-nose heel to verma are both normal. She has no change in vision or speech or weakness or numbness. Her headache started gradually after her vertigo symptoms started. Her headache has not woke her from sleep. Because the patient reports the Dramamine is not working we will switch it to meclizine. We'll treat with Augmentin in case there is a sinus infection contributing to the vertigo. Patient will continue the Flomax. We discussed the signs and symptoms of a stroke. Is not typical for vertigo to continue at rest which, if the patient leans to the right or backwards she will have continued vertigo. However, she is able to make vertigo stop by leaning to the left or laying on her left side. I let her know that continuing vertigo at rest can be a sign of a stroke however with her being able to stop the vertigo by leaning to the left that makes stroke highly unlikely. The plan is if the meclizine Flonase and Augmentin do not improve her symptoms or if her symptoms become worse to include having continuous vertigo at rest or any other neurologic symptoms the patient's to go to the emergency department. - Differential Dx/Diagnosis Provider Diagnosis: Vertigo, Headache Discharge ED - Sign-Out/Discharge Documenting (check all that apply): Patient Departure All imaging exams completed and their final reports reviewed: No Studies - Discharge Plan Condition: Stable Disposition: HOME Prescriptions: Amoxicillin/Clavulanate TAB* [Augmentin TAB 875*] 875 mg PO BID #18 tab Meclizine HCl [Motion Sickness Relief] 25 mg PO Q6HR PRN #20 tablet PRN Reason: Vertigo Patient Education Materials: Vertigo (ED), Acute Headache (ED) Referrals: [facility] [place] PHYSICIAN REFERRAL [Outside] Additional Instructions: FOLLOW UP WITH YOUR DOCTOR. GO TO THE EMERGENCY DEPARTMENT IF NOT IMPROVED OR WORSE; VERTIGO THAT DOES NOT GO AWAY, WEAKNESS, NUMBNESS, CHANGES IN VISION OR SPEECH OR ANY QUESTIONS OR CONCERNS. - Billing Disposition and Condition Condition: STABLE Disposition: Home
== END 2019-12-27 16:50 | disposition home or self-care (01) ==
LOC: UCEAST 14:30
DX: R42 Dizziness and giddiness (principal); R51 Headache; Z88.5 Allergy status to narcotic agent; Z88.8 Allergy status to other drugs, medicaments and biological substances; F17.200 Nicotine dependence, unspecified, uncomplicated
CPT/HCPCS: 99213; A9270-GY; G0463